=== PATIENT | male | born 1950 | race Caucasian/White ===

== ENCOUNTER 2017-06-26 22:20 | Emergency (ER) | payer OTHER ==
[2017-06-26 22:28] VITALS: RESP 18
[2017-06-26] MEDS ORDERED: DIAZEPAM 5 MG TAB PO ONE (23:06)
[2017-06-26 23:46] VITALS: PULSE 58
--- NOTE | 2017-06-26 23:48 | EDPHY ---
H & P Stated Complaint: c/o R lower back pain x 7 days, says today started having spasms HPI/ROS: HPI The patient presents with low back pain which has been present for the last 1 week, it is right-sided, achy in nature, does not radiate. It became worse tonight and had the sensation of a muscle spasm. It is well-localized his right lower back and does not radiate. Earlier today he swing a.m. and did some running, he feels this may have exacerbated his symptoms. He a few days ago was also doing some lunges with weights. The pain became severe at about 10 :00 p.m.. He took Aleve, 2 doses, without much improvement in his symptoms. He had to lie on the floor the pain was so severe. He denies any numbness or tingling of his legs. He does not have any weakness of his legs. He does not have any urinary incontinence. He does have a history of kidney stones though this feels different.. REVIEW OF SYSTEMS Constitutional: No fever, no chills. Eyes: No discharge. ENT: No sore throat. Cardiovascular: No chest pain, no palpitations. Respiratory: No cough, no shortness of breath. Gastrointestinal: No abdominal pain, no vomiting. Genitourinary: No hematuria. Musculoskeletal: Positive for back pain. Skin: No rashes. Neurological: No headache. PMHx: CAD, ureterolithiasis Soc Hx: Lives at home, exercises frequently PHYSICAL General Appearance: Alert, no distress Eyes: Pupils equal and round no pallor or injection ENT, Mouth: Mucous membranes moist Respiratory: There are no retractions, lungs are clear to auscultation Cardiovascular: Regular rate and rhythm Gastrointestinal: Abdomen is soft and non-tender, no masses, bowel sounds normal Neurological: A&O, moves all extremities Skin: Warm and dry, no rashes Musculoskeletal: There is no midline tenderness throughout his spine, there is right paraspinal mid lumbar tenderness to palpation, there is limited flexion and extension of the C-spine secondary to pain, positive straight leg raise on the right, sensation is intact to light touch and there is 5/5 strength of his lower extremities Extremities: symmetrical, full range of motion Psychiatric: Patient is oriented X 3, there is no agitation Source: Patient Exam Limitations: No limitations - Personal History Tetanus Vaccine Date: 2003 - Medical/Surgical History Hx Asthma: Yes Hx Chronic Respiratory Disease: No Hx Diabetes: No Hx Cardiac Disease: Yes Hx Renal Disease: No Hx Cirrhosis: No Hx Alcoholism: No Hx HIV/AIDS: No Hx Splenectomy or Spleen Trauma: No Other PMH: asthma, hyperlipidemia, hernia repair, melanoma removed, kidney stone x 1 - Social History Smoking Status: Never smoked Constitutional: Initial Vital Signs Temperature (C) 36.8 C 06/26/17 22:23 Heart Rate 74 06/26/17 22:23 Respiratory Rate 18 06/26/17 22:23 Blood Pressure 153/79 H 06/26/17 22:23 O2 Sat (%) 94 06/26/17 22:23 O2 Delivery Mode Room Air Allergies/Adverse Reactions: No Known Allergies Allergy (Verified 06/26/17 22:28) Home Medications: Medication Instructions Recorded Albuterol [Proventil Inhaler] 1 - 2 puffs IH Q4 PRN 05/07/13 Aspirin [Aspirin 81mg (OTC)] 81 mg PO DAILY 05/07/13 Fluticasone/Salmeterol [Advair 1 puffs IH DAILY 05/07/13 250-50 Diskus] [place]-3 Fatty Acids [Fish Oil 1000 1,000 mg PO HS 05/07/13 mg (OTC)] Pravastatin Sodium 20 mg PO HS 05/07/13 Ubidecarenone [Co Q-10] 100 mg PO HS 05/07/13 Aleve 06/26/17 Diazepam [Valium 5 MG (*)] 5 mg PO TID PRN #10 tab 06/27/17 Medical Decision Making Differential Diagnosis: This is a 67-year-old relatively healthy man with history of CAD who presents with right-sided low back pain for the last several days, though worse tonight. This is in the setting of several exercises. He does not have any red flag features of his pain, on exam, he does not have any midline tenderness, he does have positive right-sided straight leg raise. He has no neurologic deficits. Differential diagnosis includes muscle spasm, disc herniation, less likely kidney stone, less likely aortic dissection. In the emergency department, patient was given morphine and Valium with improvement in his pain. UA was performed which showed no blood. Lidocaine patch was placed. He will be discharged with instructions for ibuprofen/ Tylenol as well as Valium as needed. He is to follow up with his regular doctor. He was given back pain exercises. Because he has normal blood pressures, no history of AAA, I feel no imaging is warranted. - Data Points Medications Given: Discontinued Medications Diazepam (Valium) 5 mg PO EDNOW ONE Stop: 06/26/17 23:07 Last Admin: 06/26/17 23:15 Dose: 5 mg Diazepam (Valium 5 Mg Prepack#4) 1 btl TAKEHOME EDNOW ONE Stop: 06/27/17 00:44 Last Admin: 06/27/17 01:18 Dose: 1 btl Lidocaine (Lidoderm 5%) 1 ea TD DAILY NISHI Stop: 12/24/17 08:59 Last Admin: 06/27/17 01:18 Dose: 1 ea Morphine Sulfate (Morphine) 4 mg IM EDNOW ONE Stop: 06/26/17 23:07 Last Admin: 06/26/17 23:15 Dose: 4 mg Departure - Departure Disposition: Home, Routine, Self-Care Clinical Impression: Lower back pain Condition: Good Instructions: Low Back Strain (ED), Lower Back Exercises (ED) Additional Instructions: I recommend you take ibuprofen 400 mg with acetaminophen 650 mg every 6 hr. If the pain is still bad after this, you can take the Valium. Please follow-up with your regular doctor in 1-2 days. Referrals: ESTRELLITA SUNSHINE [Primary Care Provider] - As per Instructions Prescriptions: Diazepam [Valium 5 MG (*)] 5 mg PO TID PRN #10 tab PRN Reason: Spasms
[2017-06-27] MEDS ORDERED: DIAZEPAM 5 MG PREPACK#4 BTL TAKEHOME ONE (00:43)
[2017-06-27] MEDS ORDERED: LIDOCAINE 5% 1 EA PATCH TD ONE (00:50)
[2017-06-27 01:23] VITALS: BP 137/84; TEMP 98.1; O2SAT 95
[2017-06-27] MEDS ORDERED: LIDOCAINE 5% 1 EA PATCH TD SCH (09:00)
[2017-06-27] MEDS ORDERED: PATCH REMOVAL 1 EA PATCH TD SCH (21:00)
== END 2017-06-27 01:24 | disposition home or self-care (01) ==
DX: M54.5 Low back pain (principal); J45.909 Unspecified asthma, uncomplicated; I25.10 Atherosclerotic heart disease of native coronary artery without angina pectoris; Z79.82 Long term (current) use of aspirin